=== PATIENT | male | born 1995 ===

== ENCOUNTER 2017-10-05 01:17 | Emergency (ER) | payer SELFPAY ==
[2017-10-05 01:34] VITALS: RESP 18; TEMP 98; O2SAT 99
[2017-10-05] MEDS ORDERED: Fluorescein 1 mg Ophthalmic Strip ONE (02:10)
[2017-10-05] MEDS ORDERED: Tobramycin 0.3% OPH OINT OD STA (02:18)
[2017-10-05] MEDS ORDERED: Tobramycin 0.3% OPH OINT ONE (02:21)
--- NOTE | 2017-10-05 02:25 | C.PDOC ---
History Of Present Illness 22 year old male presents to the ER with a complaint of right eye discomfort and tearing. Patient states 4 days ago dust particles flew into his right eye and he has been having discomfort since then. Denies change in vision. Time Seen by Provider: 10/05/17 01:52 Chief Complaint (Nursing): Eye Problem History Per: Patient History/Exam Limitations: no limitations Onset/Duration Of Symptoms: Days Current Symptoms Are (Timing): Still Present Injury To Eye?: No Associated Symptoms: Other (Discomfort, tearing). denies: Decreased Vision Recent travel outside of the [place]: No Past Medical History Reviewed: Historical Data, Nursing Documentation, Vital Signs Vital Signs: Last Vital Signs Temp 98 F 10/05/17 01:31 Pulse 75 10/05/17 02:46 Resp 18 10/05/17 02:46 BP 124/71 10/05/17 02:46 Pulse Ox 99 10/05/17 03:49 Family History: States: Unknown Family Hx - Social History Hx Alcohol Use: No Hx Substance Use: No - Immunization History Hx Tetanus Toxoid Vaccination: No Hx Influenza Vaccination: No Hx Pneumococcal Vaccination: No Review Of Systems Eyes: Positive for: Other (Discomfort, Tearing). Negative for: Vision Change Physical Exam - Physical Exam Appears: Non-toxic Skin: Normal Color, Warm, Dry Head: Atraumatic, Normacephalic Eye(s): bilateral: PERRL, EOMI, right: Other (Minimal conjunctival injection, right corneal abrasion between 7-9 o clock, no foreign body visualized), left: Normal Inspection (20/20 visual acuity) Neurological/Psych: Oriented x3, Normal Speech ED Course And Treatment O2 Sat by Pulse Oximetry: 99 (Room air) Pulse Ox Interpretation: Normal Progress Note: Motrin administered, and tobrex applied. Patient reports improvement of pain, will discharge home with instructions to follow up with fashion editor. Disposition Counseled Patient/Family Regarding: Diagnosis, Need For Followup - Disposition Referrals: Leland Son MD [Staff Provider] - Disposition: HOME/ ROUTINE Disposition Time: 02:22 Condition: STABLE Additional Instructions: Please follow up with EYE doctor- call for appointment Continue applying bacitracin to right Apply tobrex oint 2 x daily to Right eye Tylenol or advil for pain Return to ER if worse Instructions: Corneal Abrasion (DC) Forms: [employer] (Ind[place]ian) - Clinical Impression Clinical Impression: Corneal abrasion - PA / INTERPRETER AND TRANSLATOR / Resident Statement MD/DO has reviewed & agrees with the documentation as recorded. - Scribe Statement The provider has reviewed the documentation as recorded by the Scribe Jamie Zamorano All medical record entries made by the Scribe were at my direction and personally dictated by me. I have reviewed the chart and agree that the record accurately reflects my personal performance of the history, physical exam, medical decision making, and the department course for this patient. I have also personally directed, reviewed, and agree with the discharge instructions and disposition.
[2017-10-05 02:48] VITALS: BP 124/71; PULSE 75
== END 2017-10-05 02:51 | disposition home or self-care (01) ==
LOC: C.ER 01:17 → SUPCPDRO 01:17 → C.ER 02:51
DX: S05.01XA Injury of conjunctiva and corneal abrasion without foreign body, right eye, initial encounter (principal); X58.XXXA Exposure to other specified factors, initial encounter